=== PATIENT | female | born 1940 | race Caucasian/White ===

== ENCOUNTER → 2016-07-14 | Outpatient (REF) | payer MEDICARE ==
[~2016-07-14] MED LIST: CALCTAB22; FURO20TA2; LEVO125T6; MIRALAX; POTA20TA; SERT50TA2; THERGRAN; ZETI10TA
== END ==
LOC: M LAB REF 17:07
PROVIDERS: ATTEND Nurse Practitioner Adult Health
DX: C20 Malignant neoplasm of rectum (principal)

== ENCOUNTER → 2016-08-19 | Outpatient (CLI) | payer MEDICARE ==
--- NOTE | 2016-08-20 10:25 | RADONC ---
RADIATION ONCOLOGY FOLLOWUP NOTE: DATE: 08/19/2016 CHART NUMBER: [id number]. DIAGNOSIS: Rectal cancer. STAGE: IIIC, T3N2M0. ECOG PERFORMANCE STATUS: Zero. FOLLOWUP NOTE: Ms. Armendariz is a very pleasant, 75-year-old white female with the diagnosis of a stage IIIC, T3N2M0, moderately differentiated adenocarcinoma of the rectum who is presenting to us today for routine followup visit 8 years post completion of external beam radiation therapy. The patient presents today reporting that she is doing quite well with no complaints at this time related to her radiation therapy or disease. She is having no urinary or bowel difficulty or no bone pain. REVIEW OF SYSTEMS: The patient's review of systems is noncontributory. Denies nausea, vomiting, fevers, chills, night sweats, diplopia, headaches, anxiety or depression, anorexia, weight loss, visual disturbances, chest pain, urinary or bowel difficulties, bone pain, or neurological problems. PHYSICAL EXAMINATION: The patient is a well-developed, well-nourished, 75-year-old white female in no acute distress. HEENT exam is normocephalic, atraumatic. Extraocular movements are intact. There is no palpable cervical, supraclavicular, infraclavicular, axillary, or inguinal lymphadenopathy present. Lungs are clear to auscultation and percussion. Heart has a regular rate and rhythm. Abdomen is benign with no hepatosplenomegaly, masses, or tenderness. Skeletal examination reveals no tenderness to pressure or percussion of the bony skeleton. Extremities reveal no clubbing, cyanosis, or edema. Neurologic exam is grossly intact, as is the remainder of the physical examination. Rectal examination reveals a normal anal sphincter tone. There is no evidence of nodularity, ulceration or residual disease. ASSESSMENT: The patient is clinically SHEILA at this time and will be seen by us again in 1 year for further followup. She will also continue be followed by her other physicians as well. cc: Akhil Mcclain Jr, MD [place], MD Jason White, MD
== END ==
LOC: M ONCR 10:36
PROVIDERS: ATTEND Radiology Radiation Oncology
DX: C20 Malignant neoplasm of rectum (principal); C50.019 Malignant neoplasm of nipple and areola, unspecified female breast

== ENCOUNTER 2017-02-24 13:08 | Outpatient (RCR) | payer MEDICARE | END 2017-03-24 | LOC: M PT 13:08 | DX: Z51.89 Encounter for other specified aftercare (principal); R53.83 Other fatigue | CPT/HCPCS: 97110 ==

== ENCOUNTER → 2017-08-18 | Outpatient (CLI) | payer MEDICARE | LOC: M ONCR 09:41 | DX: C20 Malignant neoplasm of rectum (principal) | CPT/HCPCS: G0463 ==

== ENCOUNTER → 2018-07-14 | Outpatient (REF) | payer MEDICARE | LOC: M LAB REF 16:33 | PROVIDERS: ATTEND Nurse Practitioner Adult Health | DX: Z85.038 Personal history of other malignant neoplasm of large intestine (principal); Z12.12 Encounter for screening for malignant neoplasm of rectum ==

== ENCOUNTER → 2019-11-28 | Outpatient (REF) | payer MEDICARE | LOC: M LAB REF 16:20 | PROVIDERS: ATTEND Nurse Practitioner Adult Health | DX: Z85.038 Personal history of other malignant neoplasm of large intestine (principal) ==

== ENCOUNTER 2020-03-28 07:48 | Emergency (ER) | payer MEDICARE ==
[~2020-03-28] VITALS: Ht 165.1 cm; Wt 82.5 kg
[2020-03-28] MEDS ORDERED: D31000TA2 PO (08:00)
[2020-03-28] MEDS ORDERED: LIDOCAINE W/EPINEPHRINE 1% 20ML VIAL SC ONE (08:30)
[2020-03-28] MEDS ORDERED: CEPH500C PO (08:55)
[2020-03-28 09:09] VITALS: BP 143/70
== END 2020-03-28 09:11 | disposition home or self-care (01) ==
LOC: M ED 07:48
DX: S01.511A Laceration without foreign body of lip, initial encounter (principal); W00.0XXA Fall on same level due to ice and snow, initial encounter; Y92.019 Unspecified place in single-family (private) house as the place of occurrence of the external cause; Y93.9 Activity, unspecified; Y99.9 Unspecified external cause status; I10 Essential (primary) hypertension; E78.5 Hyperlipidemia, unspecified; G47.33 Obstructive sleep apnea (adult) (pediatric); Z85.038 Personal history of other malignant neoplasm of large intestine; Z79.899 Other long term (current) drug therapy

== ENCOUNTER → 2020-07-03 | Outpatient (CLI) | payer MEDICARE ==
[~2020-07-03] MED LIST changes: +CEPH500C PO; +D31000TA2 PO
--- NOTE | 2020-07-03 10:49 | REP ---
INDICATION: CERVICAL RADICULOPATHY. COMPARISON: None. TECHNIQUE: Full cervical spine series performed, 7 views including flexion and extension lateral views as well as oblique views. FINDINGS: C7 vertebral body cannot be visualized as it is obscured by overlying soft tissues. No compression fracture is seen of the visualized cervical vertebral bodies. There is no significant subluxation, with normal cervical lordosis. There is no prevertebral soft tissue swelling. There is mild spurring of C4, with moderate spurring of C5 and C6. There is moderate narrowing and subchondral sclerosis at C5-6 disc space. There is diffuse sclerosis and spurring at the posterior facet joints. The suspect a mild degree of neural foraminal narrowing bilaterally at C3-4 and C5-6. IMPRESSION: Degenerative changes as above. <Electronically signed by Cachorro [place] > 07/03/20 [id number]
== END ==
LOC: M WUC 09:46
PROVIDERS: ATTEND Nurse Practitioner Adult Health
DX: M54.12 Radiculopathy, cervical region (principal)

== ENCOUNTER → 2021-02-18 | Outpatient (REF) | payer MEDICARE | LOC: M LAB REF 16:16 | PROVIDERS: ATTEND Nurse Practitioner Adult Health | DX: Z85.038 Personal history of other malignant neoplasm of large intestine (principal) ==

== ENCOUNTER → 2021-04-21 | Outpatient (CLI) | payer MEDICARE ==
[~2021-04-21] MED LIST changes: -D31000TA2 PO; +VITA100093 PO
== END ==
LOC: M WHC 14:07
PROVIDERS: ATTEND Nurse Practitioner Adult Health
DX: Z12.31 Encounter for screening mammogram for malignant neoplasm of breast (principal); Z13.820 Encounter for screening for osteoporosis; M81.0 Age-related osteoporosis without current pathological fracture; M85.852 Other specified disorders of bone density and structure, left thigh

== ENCOUNTER → 2021-06-11 | Outpatient (REF) | payer MEDICARE | LOC: M LAB REF 16:23 | PROVIDERS: ATTEND Nurse Practitioner Adult Health | DX: R41.81 Age-related cognitive decline (principal) ==

== ENCOUNTER → 2021-07-11 | Outpatient (REF) | payer MEDICARE ==
[2021-07-11 12:42] LABS: APPEARANCE, URINE CLEAR (CLEAR); BACTERIA, URINE AUTO NEGATIVE (NEGATIVE); BILIRUBIN, URINE AUTO NEGATIVE (NEGATIVE); BLOOD, URINE BLOOD 1+ (NEGATIVE); COLOR, URINE STRAW (YELLOW); GLUCOSE, URINE (UA) AUTO NEGATIVE (NEGATIVE); KETONE, URINE AUTO NEGATIVE (NEGATIVE); LEUKOCYTE ESTERASE, URINE AUTO NEGATIVE (NEGATIVE); NITRITE, URINE AUTO NEGATIVE (NEGATIVE); PROTEIN, URINE AUTO NEGATIVE (NEGATIVE); RBC, URINE AUTO 0 /HPF (0-3); SPECIFIC GRAVITY URINE AUTO 1.004 (1.002-1.035); SQUAMOUS EPITHELIAL CELL UR AU 0 /HPF (0-6); UROBILINOGEN, URINE AUTO 0.2 mg/dL (0.0-2.0); WBC, URINE AUTO 0 /HPF (0-3)
== END ==
LOC: M LAB REF 12:27
PROVIDERS: ATTEND Physician Assistant Medical
DX: N39.0 Urinary tract infection, site not specified (principal)

== ENCOUNTER → 2021-08-05 | Outpatient (CLI) | payer MEDICARE | LOC: M WUC 14:28 | PROVIDERS: ATTEND Nurse Practitioner Adult Health | DX: M25.552 Pain in left hip (principal); R31.9 Hematuria, unspecified; R30.0 Dysuria ==

== ENCOUNTER → 2021-11-20 | Outpatient (REF) | payer MEDICARE ==
[2021-11-20 16:59] LABS: FREE T3 2.8 PG/ML (2.2-4.0)
[2021-11-20 17:27] LABS: THYROID PEROXIDASE ANTIBODY 309.9 U/ML (<60.0)
[2021-11-23 13:07] LABS: THYROID STIMULATING IMMUNOGLOB 4.63 IU/L (0.00-0.55); TSH RECEPTOR ASSAY 2.44 IU/L (0.00-1.75)
== END ==
LOC: M LAB REF 16:14
PROVIDERS: ATTEND Internal Medicine
DX: G72.9 Myopathy, unspecified (principal)

== ENCOUNTER → 2022-03-19 | Outpatient (CLI) | payer MEDICARE ==
[~2022-03-19] MED LIST changes: +GASTROGRAFIN SOLUTION 30ML As Ordered ONE; +ISOVUE-370 76% 100ML VIAL As Ordered ONE
== END ==
LOC: M RAD 14:08
PROVIDERS: ATTEND Nurse Practitioner Adult Health
DX: C53.0 Malignant neoplasm of endocervix (principal)
CPT/HCPCS: 74178; Q9963; Q9967

== ENCOUNTER → 2022-03-25 | Outpatient (CLI) | payer MEDICARE ==
[~2022-03-25] MED LIST changes: -GASTROGRAFIN SOLUTION 30ML As Ordered ONE; -ISOVUE-370 76% 100ML VIAL As Ordered ONE
== END ==
LOC: M RAD 11:52
PROVIDERS: ATTEND Nurse Practitioner Adult Health
DX: N95.0 Postmenopausal bleeding (principal)

== ENCOUNTER → 2022-05-04 | Outpatient (CLI) | payer MEDICARE | LOC: M LABSMTC 08:05 | PROVIDERS: ATTEND Nurse Practitioner | DX: Z01.812 Encounter for preprocedural laboratory examination (principal); Z20.822 Contact with and (suspected) exposure to COVID-19; R87.614 Cytologic evidence of malignancy on smear of cervix ==

== ENCOUNTER → 2022-08-05 | Outpatient (REF) | payer MEDICARE ==
[~2022-08-05] MED LIST changes: +ARTIDRO4 OP; +B-12100021 PO; +CHLO125TA; +HYDR2.5C; +OLME5TAB24
== END ==
LOC: M LAB REF 12:02
PROVIDERS: ATTEND Nurse Practitioner Adult Health
DX: R35.0 Frequency of micturition (principal)

== ENCOUNTER → 2022-08-20 | Outpatient (CLI) | payer MEDICARE ==
[~2022-08-20] MED LIST changes: +CALC600T86 PO; -CHLO125TA; +CHLO125TA PO; +EZET10TA21 PO; -HYDR2.5C; +HYDR2.5C TOP; +LEVO125T4 PO; +LIDOCAINE 1% MDV 20ML VIAL As Ordered ONE; +MIDAZOLAM INJ 2MG/2ML VIAL As Ordered ONE; +NS 1,000 ML IV SCH; -OLME5TAB24; +OLME5TAB24 PO; +ONDA-84 PO; +PROC10TA5 PO; +ceFAZolin 2 GM/D5W 50 ML IV BAG As Ordered ONE; +ceFAZolin SOD 2 GM in IV 1 EA IV ONE; +diphenhydrAMINE 50MG/ML VIAL As Ordered ONE; +fentaNYL 100 MCG/2 ML INJECTION As Ordered ONE
[2022-08-20 13:00] VITALS: TEMP 97.6
[2022-08-20 16:59] VITALS: BP 155/72; O2SAT 97
== END ==
LOC: M IRPRO 12:21
PROVIDERS: ATTEND Internal Medicine Hematology & Oncology
DX: C54.1 Malignant neoplasm of endometrium (principal)
CPT/HCPCS: 36561; 99152; 99153; C1769; C1788; C1894; J0690; J1200; J2250; J3010

== ENCOUNTER 2022-09-29 08:42 | Day surgery (SDC) | payer MEDICARE ==
[~2022-09-29] VITALS: Ht 160 cm; Wt 72.4 kg
[~2022-09-29 08:42] MED LIST changes: +CEFUROXIME 1MG/0.1ML INTRACAMERAL INJ As Ordered ONE; +CYCLOPENTOLATE 1% OPHTH SOLN 2ML BTL OD SCH; -LIDOCAINE 1% MDV 20ML VIAL As Ordered ONE; +LIDOCAINE 1% SDV 5ML VIAL As Ordered ONE; -MIDAZOLAM INJ 2MG/2ML VIAL As Ordered ONE; -NS 1,000 ML IV SCH; +OFLOXACIN 0.3 % (OCUFLOX) OPTH SOL 5ML OD SCH; +PHENYLEPHRINE 2.5% OPHTH SOL 2ML OD SCH; +PROPARACAINE 0.5% OPHTH SOL 15ML OD ONE; +TROPICAMIDE 1% OPHTH SOLN 15ML OD SCH; -ceFAZolin 2 GM/D5W 50 ML IV BAG As Ordered ONE; -ceFAZolin SOD 2 GM in IV 1 EA IV ONE; -diphenhydrAMINE 50MG/ML VIAL As Ordered ONE; -fentaNYL 100 MCG/2 ML INJECTION As Ordered ONE
[2022-09-29] MEDS ORDERED: fentaNYL 100 MCG/2 ML INJECTION As Ordered ONE (09:59)
[2022-09-29] MEDS ORDERED: MIDAZOLAM INJ 2MG/2ML VIAL As Ordered ONE (09:59)
[2022-09-29 11:00] VITALS: BP 138/63; TEMP 97.2; O2SAT 100
[2022-09-30] MEDS ORDERED: KETO0.5S4 OD (13:27)
== END 2022-09-29 11:24 | disposition home or self-care (01) ==
LOC: M SDC 08:42
PROVIDERS: ATTEND Ophthalmology
DX: H25.11 Age-related nuclear cataract, right eye (principal); I10 Essential (primary) hypertension; G47.30 Sleep apnea, unspecified; Z88.8 Allergy status to other drugs, medicaments and biological substances; Z91.048 Other nonmedicinal substance allergy status; Z79.899 Other long term (current) drug therapy
CPT/HCPCS: 66984; J0697; J2250; J3010; V2632

== ENCOUNTER 2022-10-11 08:06 | Inpatient (IN) | payer MEDICARE ==
[~2022-10-11] VITALS: Ht 165.1 cm; Wt 70.5 kg
[~2022-10-11 08:06] MED LIST changes: -CEFUROXIME 1MG/0.1ML INTRACAMERAL INJ As Ordered ONE; -CYCLOPENTOLATE 1% OPHTH SOLN 2ML BTL OD SCH; +KETO0.5S4 OD; -LIDOCAINE 1% SDV 5ML VIAL As Ordered ONE; -OFLOXACIN 0.3 % (OCUFLOX) OPTH SOL 5ML OD SCH; -PHENYLEPHRINE 2.5% OPHTH SOL 2ML OD SCH; -PROPARACAINE 0.5% OPHTH SOL 15ML OD ONE; -TROPICAMIDE 1% OPHTH SOLN 15ML OD SCH
[2022-10-11] MEDS ORDERED: SODIUM CHLORIDE 0.9% INJ 10 ML SYR IV PRN (08:25)
[2022-10-11] MEDS ORDERED: OFLO5DRO (08:27)
[2022-10-11 09:04] LABS: BASO % 0.4 % (0.0-1.0); HEMATOCRIT 27.8 % (36.0-47.0); HEMOGLOBIN 9.3 g/dl (12.0-15.5); LYMPH # 0.3 10^3/uL (1.5-5.0); LYMPH % 3.6 % (24.0-44.0); MEAN CORPUSCULAR HEMOGLOBIN 30.8 pg (27.0-33.0); MEAN CORPUSCULAR HGB CONC 33.5 g/dl (32.0-36.5); MEAN CORPUSCULAR VOLUME 92.1 fl (80.0-96.0); MONO # 0.5 10^3/uL (0.0-0.8); MONO % 5.4 % (2.0-8.0); NEUTROPHILS # 8.3 10^3/uL (1.5-8.5); NEUTROPHILS % 90.1 % (36.0-66.0); PLATELET COUNT, AUTOMATED 300 10^3/uL (150-450); RED BLOOD COUNT 3.02 10^6/uL (4.00-5.40); WHITE BLOOD COUNT 9.2 10^3/uL (4.0-10.0)
[2022-10-11 09:26] LABS: ALBUMIN 3.1 G/DL (3.2-5.2); ALKALINE PHOSPHATASE 104 U/L (46-116); ALT/SGPT 181 U/L (7.0-40); AST/SGOT 219 U/L (<34); BILIRUBIN,DIRECT 0.2 MG/DL (<0.4); BILIRUBIN,TOTAL 0.6 MG/DL (0.3-1.2); BLOOD UREA NITROGEN 19 MG/DL (9-23); CALCIUM LEVEL 8.8 MG/DL (8.3-10.6); CARBON DIOXIDE LEVEL 26 MMOL/L (20-31); CHLORIDE LEVEL 100 MMOL/L (98-107); CREATININE FOR GFR 0.62 MG/DL (0.55-1.30); GLOMERULAR FILTRATION RATE > 60.0 (>32); GLUCOSE, FASTING 98 MG/DL (74-106); POTASSIUM SERUM 4.2 MMOL/L (3.5-5.1); SODIUM LEVEL 135 MMOL/L (136-145); TOTAL PROTEIN 5.9 G/DL (5.7-8.2)
[2022-10-11 09:28] LABS: THYROID STIMULATING HORMONE 8.335 uIU/ML (0.55-4.78)
[2022-10-11 09:29] LABS: FREE T4 1.74 NG/DL (0.89-1.76)
[2022-10-11 09:33] LABS: INR 1.12; PROTHROMBIN TIME 14.1 SECONDS (12.5-14.5)
[2022-10-11] MEDS ORDERED: ISOVUE-370 76% 100ML VIAL As Ordered ONE (09:46)
[2022-10-11] MEDS ORDERED: MED REC IN PROGRESS XX SCH (13:05)
[2022-10-11] MEDS ORDERED: PREDOPD OD (13:27)
[2022-10-11] MEDS ORDERED: HOME MED LIST COMPLETE! XX SCH ×2 (13:40→18:05)
[2022-10-11 15:45] VITALS: BP 145/87; TEMP 97.9; O2SAT 95
[2022-10-11] MEDS: prednisoLONE ACET 1% OPHTH SUSP 5ML OD SCH ×2 (16:00→20:22)
[2022-10-11] MEDS: PANTOPRAZOLE 40MG VIAL IV SCH (16:02)
[2022-10-11] MEDS: KCL 20MEQ IN D5/0.45NS 1000ML 1,000 ML IV SCH (16:02)
[2022-10-11] MEDS: KETOROLAC 0.5% OPHTH SOLN OD SCH ×2 (17:00→20:22)
[2022-10-11] MEDS: NYSTATIN 500,000U/5ML SUSP UDC SS SCH ×2 (17:45→23:35)
[2022-10-11] MEDS: SUCRALFATE SUSP 1GM/10ML UD PO SCH ×2 (17:45→23:35)
[2022-10-11 21:40] VITALS: BP 96/53; TEMP 98.1; O2SAT 97
[2022-10-12] MEDS: KCL 20MEQ IN D5/0.45NS 1000ML 1,000 ML IV SCH ×2 (03:48→15:15)
[2022-10-12 05:35] VITALS: BP 98/54; TEMP 97.9; O2SAT 96
[2022-10-12 05:42] LABS: HEMATOCRIT 26.7 % (36.0-47.0); MEAN CORPUSCULAR HGB CONC 33.7 g/dl (32.0-36.5); MEAN CORPUSCULAR VOLUME 92.1 fl (80.0-96.0); PLATELET COUNT, AUTOMATED 301 10^3/uL (150-450); WHITE BLOOD COUNT 9.3 10^3/uL (4.0-10.0)
[2022-10-12] MEDS: SUCRALFATE SUSP 1GM/10ML UD PO SCH ×3 (05:43→17:51)
[2022-10-12] MEDS: NYSTATIN 500,000U/5ML SUSP UDC SS SCH ×3 (05:43→17:51)
[2022-10-12 06:08] LABS: ALBUMIN 2.7 G/DL (3.2-5.2); ALKALINE PHOSPHATASE 89 U/L (46-116); ALT/SGPT 177 U/L (7.0-40); AST/SGOT 197 U/L (<34); BILIRUBIN,TOTAL 0.5 MG/DL (0.3-1.2); BLOOD UREA NITROGEN 14 MG/DL (9-23); CALCIUM LEVEL 8.6 MG/DL (8.3-10.6); CARBON DIOXIDE LEVEL 27 MMOL/L (20-31); CHLORIDE LEVEL 98 MMOL/L (98-107); CREATININE FOR GFR 0.57 MG/DL (0.55-1.30); GLOMERULAR FILTRATION RATE > 60.0 (>32); GLUCOSE, FASTING 126 MG/DL (74-106); POTASSIUM SERUM 4.5 MMOL/L (3.5-5.1); SODIUM LEVEL 133 MMOL/L (136-145); TOTAL PROTEIN 5.3 G/DL (5.7-8.2)
[2022-10-12 08:22] VITALS: BP 148/74
[2022-10-12] MEDS: PANTOPRAZOLE 40MG VIAL IV SCH (10:14)
[2022-10-12] MEDS: KETOROLAC 0.5% OPHTH SOLN OD SCH ×4 (10:14→20:13)
[2022-10-12] MEDS: ENOXAPARIN 40MG/0.4ML SYRINGE (J1650 PER 10MG) SC SCH (10:15)
[2022-10-12] MEDS: prednisoLONE ACET 1% OPHTH SUSP 5ML OD SCH ×3 (10:15→20:13)
[2022-10-12] MEDS ORDERED: E-Z-PAQUE 96% w/w SUSP 176GM BTL As Ordered ONE (14:14)
[2022-10-12] MEDS ORDERED: VARIBAR NECTAR 40% w/v 240ML SUSP BTL As Ordered ONE (14:14)
[2022-10-12] MEDS ORDERED: BARIUM SULFATE 700 MG TABLET (E-Z-DISK) As Ordered ONE (14:14)
[2022-10-12] MEDS ORDERED: VARIBAR PUDDING 40% w/v 230ML TUBE As Ordered ONE (14:14)
[2022-10-12 15:21] VITALS: BP 138/65; TEMP 97.7; O2SAT 97
[2022-10-13] MEDS: SUCRALFATE SUSP 1GM/10ML UD PO SCH ×4 (00:29→17:45)
[2022-10-13] MEDS: NYSTATIN 500,000U/5ML SUSP UDC SS SCH ×4 (00:29→17:45)
[2022-10-13] MEDS: KCL 20MEQ IN D5/0.45NS 1000ML 1,000 ML IV SCH (04:35)
[2022-10-13 05:28] VITALS: BP 118/78; TEMP 97.9; O2SAT 96
[2022-10-13 05:59] LABS: HEMATOCRIT 26.6 % (36.0-47.0); HEMOGLOBIN 8.8 g/dl (12.0-15.5); MEAN CORPUSCULAR HEMOGLOBIN 30.8 pg (27.0-33.0); MEAN CORPUSCULAR HGB CONC 33.1 g/dl (32.0-36.5); PLATELET COUNT, AUTOMATED 358 10^3/uL (150-450); RED BLOOD COUNT 2.86 10^6/uL (4.00-5.40); WHITE BLOOD COUNT 10.8 10^3/uL (4.0-10.0)
[2022-10-13 06:27] LABS: ALBUMIN 2.6 G/DL (3.2-5.2); ALKALINE PHOSPHATASE 90 U/L (46-116); ALT/SGPT 190 U/L (7.0-40); AST/SGOT 185 U/L (<34); BILIRUBIN,TOTAL 0.4 MG/DL (0.3-1.2); BLOOD UREA NITROGEN 16 MG/DL (9-23); CALCIUM LEVEL 8.5 MG/DL (8.3-10.6); CARBON DIOXIDE LEVEL 27 MMOL/L (20-31); CHLORIDE LEVEL 99 MMOL/L (98-107); CREATININE FOR GFR 0.57 MG/DL (0.55-1.30); GLOMERULAR FILTRATION RATE > 60.0 (>32); GLUCOSE, FASTING 119 MG/DL (74-106); POTASSIUM SERUM 4.8 MMOL/L (3.5-5.1); SODIUM LEVEL 131 MMOL/L (136-145); TOTAL PROTEIN 5.3 G/DL (5.7-8.2)
[2022-10-13] MEDS: PANTOPRAZOLE 40MG VIAL IV SCH (08:40)
[2022-10-13] MEDS: ENOXAPARIN 40MG/0.4ML SYRINGE (J1650 PER 10MG) SC SCH (08:40)
[2022-10-13] MEDS: prednisoLONE ACET 1% OPHTH SUSP 5ML OD SCH ×3 (08:41→20:43)
[2022-10-13] MEDS: KETOROLAC 0.5% OPHTH SOLN OD SCH ×4 (08:41→20:43)
[2022-10-13] MEDS ORDERED: D5W/0.9% SODIUM CHLORIDE 1,000 ML IV SCH (09:00)
[2022-10-13 14:00] VITALS: BP 122/76; TEMP 97.9; O2SAT 98
[2022-10-13] MEDS ORDERED: SODIUM CHLORIDE 0.9% INJ 10 ML SYR IV PRN (18:30)
[2022-10-13 21:14] VITALS: BP 116/64; TEMP 97.7; O2SAT 97
[2022-10-14] MEDS: SUCRALFATE SUSP 1GM/10ML UD PO SCH ×3 (00:15→12:00)
[2022-10-14] MEDS: NYSTATIN 500,000U/5ML SUSP UDC SS SCH ×5 (00:15→23:54)
[2022-10-14 05:22] VITALS: BP 114/58; TEMP 97.5; O2SAT 100
[2022-10-14 05:56] LABS: HEMATOCRIT 29.8 % (36.0-47.0); HEMOGLOBIN 9.5 g/dl (12.0-15.5); MEAN CORPUSCULAR HEMOGLOBIN 30.4 pg (27.0-33.0); MEAN CORPUSCULAR HGB CONC 31.9 g/dl (32.0-36.5); MEAN CORPUSCULAR VOLUME 95.5 fl (80.0-96.0); PLATELET COUNT, AUTOMATED 411 10^3/uL (150-450); RED BLOOD COUNT 3.12 10^6/uL (4.00-5.40); WHITE BLOOD COUNT 10.5 10^3/uL (4.0-10.0)
[2022-10-14] MEDS ORDERED: LEVOTHYROXINE 125MCG TABLET (0.125MG) PO SCH (06:00)
[2022-10-14 06:29] LABS: PERCENT SATURATION 11.6 % (13.2-45.0)
[2022-10-14 06:32] LABS: ALBUMIN 2.8 G/DL (3.2-5.2); ALKALINE PHOSPHATASE 109 U/L (46-116); ALT/SGPT 222 U/L (7.0-40); AST/SGOT 197 U/L (<34); BILIRUBIN,TOTAL 0.4 MG/DL (0.3-1.2); BLOOD UREA NITROGEN 19 MG/DL (9-23); CALCIUM LEVEL 9.1 MG/DL (8.3-10.6); CARBON DIOXIDE LEVEL 27 MMOL/L (20-31); CHLORIDE LEVEL 98 MMOL/L (98-107); CREATININE FOR GFR 0.61 MG/DL (0.55-1.30); GLOMERULAR FILTRATION RATE > 60.0 (>32); GLUCOSE, FASTING 94 MG/DL (74-106); POTASSIUM SERUM 4.8 MMOL/L (3.5-5.1); SODIUM LEVEL 133 MMOL/L (136-145); TOTAL PROTEIN 5.7 G/DL (5.7-8.2)
[2022-10-14] MEDS ORDERED: FUROSEMIDE 40MG/4ML VIAL IV ONE (08:00)
[2022-10-14] MEDS: SODIUM CHLORIDE 0.9% INJ 10 ML SYR IV SCH (09:00)
[2022-10-14] MEDS ORDERED: EZETIMIBE 10MG TABLET (ZETIA) PO SCH (09:00)
[2022-10-14] MEDS: PANTOPRAZOLE 40MG VIAL IV SCH (10:08)
[2022-10-14] MEDS: prednisoLONE ACET 1% OPHTH SUSP 5ML OD SCH ×3 (10:09→20:21)
[2022-10-14] MEDS: ENOXAPARIN 40MG/0.4ML SYRINGE (J1650 PER 10MG) SC SCH (10:09)
[2022-10-14] MEDS: KETOROLAC 0.5% OPHTH SOLN OD SCH ×4 (10:09→20:21)
[2022-10-14 14:00] VITALS: BP 126/96; TEMP 97.7; O2SAT 97
[2022-10-14 16:03] LABS: CLOSTRIDIUM DIFFICILE PCR NEGATIVE (NEGATIVE)
[2022-10-14 16:26] LABS: PROCALCITONIN 0.08 ng/ml
[2022-10-14] MEDS: FLUCONAZOLE 400 MG in IV 1 EA IV SCH ×2 (17:51→20:21)
[2022-10-14] MEDS ORDERED: FLUCONAZOLE 200 MG in IV 1 EA IV SCH (18:00)
[2022-10-14 21:15] VITALS: BP 113/77; TEMP 97.9; O2SAT 97
[2022-10-15] MEDS: NYSTATIN 500,000U/5ML SUSP UDC SS SCH (05:48)
[2022-10-15 06:00] VITALS: BP 132/82; TEMP 97.3; O2SAT 95
[2022-10-15 06:31] LABS: HEMATOCRIT 27.6 % (36.0-47.0); MEAN CORPUSCULAR HEMOGLOBIN 30.5 pg (27.0-33.0); MEAN CORPUSCULAR HGB CONC 32.6 g/dl (32.0-36.5); MEAN CORPUSCULAR VOLUME 93.6 fl (80.0-96.0); PLATELET COUNT, AUTOMATED 400 10^3/uL (150-450); RED BLOOD COUNT 2.95 10^6/uL (4.00-5.40); WHITE BLOOD COUNT 10.7 10^3/uL (4.0-10.0)
[2022-10-15 07:55] LABS: ALBUMIN 2.6 G/DL (3.2-5.2); ALKALINE PHOSPHATASE 103 U/L (46-116); ALT/SGPT 219 U/L (7.0-40); AST/SGOT 184 U/L (<34); BILIRUBIN,TOTAL 0.5 MG/DL (0.3-1.2); BLOOD UREA NITROGEN 24 MG/DL (9-23); CALCIUM LEVEL 8.8 MG/DL (8.3-10.6); CARBON DIOXIDE LEVEL 25 MMOL/L (20-31); CHLORIDE LEVEL 99 MMOL/L (98-107); CREATININE FOR GFR 0.66 MG/DL (0.55-1.30); GLOMERULAR FILTRATION RATE > 60.0 (>32); GLUCOSE, FASTING 74 MG/DL (74-106); SODIUM LEVEL 134 MMOL/L (136-145); TOTAL PROTEIN 5.1 G/DL (5.7-8.2)
[2022-10-15] MEDS: SODIUM CHLORIDE 0.9% INJ 10 ML SYR IV SCH (09:29)
[2022-10-15] MEDS: PANTOPRAZOLE 40MG VIAL IV SCH (09:29)
[2022-10-15] MEDS: ENOXAPARIN 40MG/0.4ML SYRINGE (J1650 PER 10MG) SC SCH (09:30)
[2022-10-15] MEDS: KETOROLAC 0.5% OPHTH SOLN OD SCH ×4 (09:30→21:03)
[2022-10-15] MEDS: prednisoLONE ACET 1% OPHTH SUSP 5ML OD SCH ×2 (09:31→21:03)
[2022-10-15 14:00] VITALS: BP 130/99; TEMP 97.7; O2SAT 96
[2022-10-15] MEDS ORDERED: SALIVA SUBSTITUTE(MOUTHKOTE) BTL MT PRN (14:45)
[2022-10-15] MEDS ORDERED: FUROSEMIDE 20MG/2ML VIAL IV ONE (17:10)
[2022-10-15] MEDS ORDERED: FLUCONAZOLE 400 MG in IV 1 EA IV SCH (18:00)
[2022-10-15 21:36] VITALS: BP 121/91; TEMP 97.2; O2SAT 94
[2022-10-16 05:35] VITALS: BP 117/80; TEMP 97.7; O2SAT 95
[2022-10-16 06:08] LABS: HEMOGLOBIN 9.3 g/dl (12.0-15.5); MEAN CORPUSCULAR HEMOGLOBIN 30.6 pg (27.0-33.0); MEAN CORPUSCULAR HGB CONC 32.1 g/dl (32.0-36.5); MEAN CORPUSCULAR VOLUME 95.4 fl (80.0-96.0); PLATELET COUNT, AUTOMATED 436 10^3/uL (150-450); RED BLOOD COUNT 3.04 10^6/uL (4.00-5.40); WHITE BLOOD COUNT 10.1 10^3/uL (4.0-10.0)
[2022-10-16 06:42] LABS: ALBUMIN 2.7 G/DL (3.2-5.2); ALKALINE PHOSPHATASE 106 U/L (46-116); ALT/SGPT 329 U/L (7.0-40); AST/SGOT 245 U/L (<34); BILIRUBIN,TOTAL 0.5 MG/DL (0.3-1.2); BLOOD UREA NITROGEN 39 MG/DL (9-23); CALCIUM LEVEL 8.9 MG/DL (8.3-10.6); CARBON DIOXIDE LEVEL 24 MMOL/L (20-31); CHLORIDE LEVEL 97 MMOL/L (98-107); CREATININE FOR GFR 0.92 MG/DL (0.55-1.30); GLOMERULAR FILTRATION RATE > 60.0 (>32); GLUCOSE, FASTING 96 MG/DL (74-106); POTASSIUM SERUM 4.4 MMOL/L (3.5-5.1); SODIUM LEVEL 134 MMOL/L (136-145); TOTAL PROTEIN 5.3 G/DL (5.7-8.2)
[2022-10-16] MEDS ORDERED: D5W/0.9% SODIUM CHLORIDE 1,000 ML IV SCH (07:35)
[2022-10-16] MEDS: SODIUM CHLORIDE 0.9% INJ 10 ML SYR IV SCH (09:00)
[2022-10-16] MEDS ORDERED: ASPIRIN 300 MG SUPP PR SCH (09:00)
[2022-10-16] MEDS: prednisoLONE ACET 1% OPHTH SUSP 5ML OD SCH (09:08)
[2022-10-16] MEDS: ENOXAPARIN 40MG/0.4ML SYRINGE (J1650 PER 10MG) SC SCH (09:08)
[2022-10-16] MEDS: PANTOPRAZOLE 40MG VIAL IV SCH (09:08)
[2022-10-16] MEDS: KETOROLAC 0.5% OPHTH SOLN OD SCH ×2 (09:08→13:39)
[2022-10-16 10:53] VITALS: BP_SYST 84; TEMP 97.7; O2SAT 95
[2022-10-16 11:30] VITALS: BP 109/62; O2SAT 98
[2022-10-16 11:47] LABS: CK-MB VALUE MASS 77.6 NG/ML (<3.6)
[2022-10-16 11:49] LABS: MB/CK RELATIVE INDEX 11.82 (< OR =4)
[2022-10-16 11:50] LABS: HEMATOCRIT 30.2 % (36.0-47.0); HEMOGLOBIN 9.7 g/dl (12.0-15.5); MEAN CORPUSCULAR HEMOGLOBIN 30.7 pg (27.0-33.0); MEAN CORPUSCULAR HGB CONC 32.1 g/dl (32.0-36.5); MEAN CORPUSCULAR VOLUME 95.6 fl (80.0-96.0); PLATELET COUNT, AUTOMATED 520 10^3/uL (150-450); RED BLOOD COUNT 3.16 10^6/uL (4.00-5.40); WHITE BLOOD COUNT 12.9 10^3/uL (4.0-10.0)
[2022-10-16 11:58] LABS: BILIRUBIN,TOTAL 0.7 MG/DL (0.3-1.2); CALCIUM LEVEL 8.9 MG/DL (8.3-10.6); CREATININE FOR GFR 0.99 MG/DL (0.55-1.30); GLOMERULAR FILTRATION RATE 57.5 (>32); MAGNESIUM LEVEL 1.6 MG/DL (1.8-2.4); PHOSPHORUS LEVEL 5.6 MG/DL (2.4-5.1); POTASSIUM SERUM 4.4 MMOL/L (3.5-5.1)
[2022-10-16] MEDS ORDERED: ISOVUE-370 76% 100ML VIAL As Ordered ONE (12:07)
[2022-10-16] MEDS ORDERED: HEPARIN SOD (PORCINE) 5000UNITS/ML 1ML VIAL/SYRINGE IV PRN (12:35)
[2022-10-16] MEDS ORDERED: HEPARIN DRIP 25,000 UNITS in IV 1 EA IV SCH (13:00)
[2022-10-16] MEDS ORDERED: MAG SULF 1GM/100ML (MAG RUN) 1 GM in IV 1 EA IV ONE (13:00)
[2022-10-16 13:15] LABS: INR 1.42
[2022-10-16 13:16] LABS: PARTIAL THROMBOPLASTIN TIME 34.3 SECONDS (24.8-34.2)
[2022-10-16 14:06] LABS: CK-MB VALUE MASS 57.5 NG/ML (<3.6)
[2022-10-16 14:08] LABS: MB/CK RELATIVE INDEX 9.25 (< OR =4)
[2022-10-16] MEDS ORDERED: LORazepam 2 MG/ML 1ML VIAL IV PRN (16:20)
[2022-10-16] MEDS ORDERED: BISACODYL 10MG SUPP PR PRN (16:20)
[2022-10-16] MEDS ORDERED: MORPHINE 2 MG/ML 1ML VIAL IV PRN (16:20)
[2022-10-16] MEDS ORDERED: SCOPOLAMINE 1MG TRANSDERMAL PATCH TOP PRN (16:20)
[2022-10-16] MEDS ORDERED: ATROPINE SULFATE 1% OPHTH SOLN 2ML BTL SL PRN (16:20)
[2022-10-17] MEDS ORDERED: ASPIRIN 300 MG SUPP PR SCH (09:00)
== END 2022-10-18 16:27 | disposition expired | DRG 391 ==
LOC: M ED 08:06 → EDBD 08:06 → M ED INP 13:23 → ENRESERV 14:13 → M MSPAV 15:39 → M PCU 10-16 11:25 → M MSPAV 10-17 00:27
PROVIDERS: ADMIT Family Medicine; ATTEND Internal Medicine
DX: K20.80 Other esophagitis without bleeding (principal); I21.09 ST elevation (STEMI) myocardial infarction involving other coronary artery of anterior wall; I26.99 Other pulmonary embolism without acute cor pulmonale; E87.1 Hypo-osmolality and hyponatremia; C78.6 Secondary malignant neoplasm of retroperitoneum and peritoneum; C55 Malignant neoplasm of uterus, part unspecified; E03.9 Hypothyroidism, unspecified; I11.0 Hypertensive heart disease with heart failure; R13.10 Dysphagia, unspecified; D64.81 Anemia due to antineoplastic chemotherapy; I50.9 Heart failure, unspecified; E78.5 Hyperlipidemia, unspecified; R19.7 Diarrhea, unspecified; Z92.21 Personal history of antineoplastic chemotherapy; Z88.8 Allergy status to other drugs, medicaments and biological substances; Z79.899 Other long term (current) drug therapy; G47.33 Obstructive sleep apnea (adult) (pediatric); E78.00 Pure hypercholesterolemia, unspecified; F32.A Depression, unspecified; Z92.3 Personal history of irradiation; Z51.5 Encounter for palliative care